=== PATIENT | female | born 1935 | race Caucasian/White ===

== ENCOUNTER 2022-09-17 08:37 | Observation (INO) | payer MEDICARE, SELFPAY ==
[2022-09-17] VITALS (15 sets, daily range): BP systolic 143–170; BP diastolic 54–93; PULSE 59–78; RESP 14–26; TEMP 36.5–36.8; O2SAT 88–98; BMI 32.7; BMI 21.7
--- NOTE | ~2022-09-17 | XR_ITS ---
Clinical Indication: Dyspnea, chest pain AP and lateral views of the chest: Comparison: None Findings: There is possible minimal central congestive change. Lungs are otherwise clear. No pleural effusion or pneumothorax. Cardiomediastinal silhouette is prominent, with pacemaker device, status p ost probable CABG. There is extensive atherosclerotic calcification of the thoracic aorta. Bones and soft tissues are unremarkable. Impression: Possible minimal central pulmonary venous congestive change. Status post CABG with pacemaker device. Reviewed, dictated and finalized at location M. Impression: Possible minimal central pulmonary venous congestive change. Status post CABG with pacemaker device.
--- NOTE | ~2022-09-17 | US_ITS ---
Duplex Sonography of the bilateral lower extremities: Indication: Positive d-dimer Sagittal and transverse B-mode images as well as color-flow imaging were performed on the right and l eft femoral and popliteal veins. B-mode examination was done without and with compression in the tra nsverse plane. There is good visualization of the bilateral common femoral, proximal profunda femora l, superficial femoral, greater saphenous, and popliteal veins. Normal flow was seen on color-flow im aging. Normal compressibility was demonstrated. Visualized calf veins are patent. Impression: No evidence of deep vein thrombosis involving either lower extremity. Reviewed, dictated and finalized at location . Impression: No evidence of deep vein thrombosis involving either lower extremit y.
--- NOTE | 2022-09-17 08:41 | ECG_ITS ---
Measurements Intervals [place] Rate: 63 P: 177 GA: 174 QRS: -47 QRSD: 138 T: 108 QT: 412 QTc: 422 Interpretive Statements ELECTRONIC ATRIAL PACEMAKER INCOMPLETE LEFT BUNDLE BRANCH BLOCK ABNORMAL ECG NO PREVIOUS ECG AVAILABLE FOR COMPARISON Electronically Signed On 09-17-2022 16:10:26 CDT by Shakeel Keita M.D.
[2022-09-17 09:12] LABS: Basophils Absolute Auto 0.1 K/mm3 (0.0-0.1); Basophils Percent Auto 0.8 % (0.2-1.2); Eosinophils Absolute Auto 0.1 K/mm3 (0-0.3); Eosinophils Percent Auto 0.8 % (0-4.4); Hematocrit 36.2 % (37.0-47.0); Hemoglobin 11.1 g/dL (12.0-15.0); Immature Granulocyte Absolute 0.02 K/mm3 (0.00-0.031); Immature Granulocyte Percent A 0.2 % (0-0.5); Lymphocytes Absolute Auto 1.89 K/mm3 (0.9-3.2); Lymphocytes Percent Auto 21.8 % (18.3-44.2); Mean Corpuscular HGB Conc 30.7 g/dl (32-36); Mean Corpuscular Hemoglobin 29.8 pg (26-34); Mean Corpuscular Volume 97.3 fl (80-100); Mean Platelet Volume 11.9 fl (7.4-10.4); Monocytes Absolute Auto 0.8 K/mm3 (0.1-0.6); Monocytes Percent Auto 8.7 % (2.6-8.5); Neutrophils Absolute Auto 5.9 K/mm3 (1.3-6.7); Neutrophils Percent Auto 67.7 % (45.5-73.1); Platelet Count Result 245 k/mm3 (150-375); Red Blood Count 3.72 M/mm3 (4.2-5.4); Red Cell Distribution Width 13.4 % (11.5-14.5); White Blood Count 8.7 K/mm3 (4.5-10.0)
--- NOTE | 2022-09-17 09:13 | ED.SOB ---
HPI - SOB/Dyspnea General Chief Complaint: Shortness of Breath/Dyspnea Stated Complaint: dyspnea Time Seen by Provider: 09/17/22 08:37 History of Present Illness HPI Narrative: Patient is an 86-year-old female who presents ER with reports of shortness of breath. Patient has history of dementia presents from her care facility. She is unable to tell me Causes of her shortness of breath. It is unknown whether she has been having fevers or chills. It is unknown whether she has had any new productive cough. Additionally when asked if patient had chest pain it was reported as she's and all night long but she cannot describe any quality of the pain or whether she has any at this time. Review of Systems Review of Systems: ROS unobtainable: Yes unobtainable due to mental status PMFSH Past Medical History Medical History (Updated 09/17/22 @ 13:18 by Craig Denney MD) Dementia Depression GERD (gastroesophageal reflux disease) Hyperlipidemia Hypertension Hypothyroidism Macular degeneration Surgical History Surgical History (Updated 09/17/22 @ 09:32 by Craig Denney MD) History of permanent cardiac pacemaker placement Exam Narrative: GENERAL: Chronically ill-appearing, well-nourished, and in no acute distress. HEAD: Normocephalic, atraumatic. ENT: Mucous membranes moist. NECK: Supple. CHEST: Clear to auscultation. No respiratory distress. HEART: Regular rate and rhythm. Normal peripheral pulses. ABDOMEN: Soft, nontender, nondistended. EXTREMITIES: Normal range of motion. No edema. SKIN: Warm, dry, no rash. NEURO: Alert and oriented x1. PSYCH: Normal mood and affect. Course Course Emergency Course: Spoke with patient's primary is project manager Dr. Palacios. Troponin negative x2 but BNP elevated, patient is not on diuretics. Recommends admission to the hospital for diuresis and echocardiogram as this is atypical for patient. He will cancel the patient's appointment for today. Patient and son educated on treatment plan and verbalized understanding. Vital Signs Vital signs: Vital Signs Temperature 98.3 F 09/17/22 08:50 Pulse Rate 78 09/17/22 08:50 Respiratory Rate 16 09/17/22 08:50 Blood Pressure 145/72 H 09/17/22 08:50 Pulse Oximetry 98 09/17/22 08:50 Oxygen Delivery Room Air 09/17/22 08:50 Temperature 98.2 F 09/17/22 10:25 Pulse Rate 65 09/17/22 10:25 Respiratory Rate 18 09/17/22 10:25 Blood Pressure 152/65 H 09/17/22 10:25 Pulse Oximetry 95 09/17/22 10:25 Oxygen Delivery Room Air 09/17/22 08:50 MDM - SOB/Dyspnea Lab Data 09/17/22 09:06 09/17/22 09:06 Labs: Lab Results 09/17/22 09/17/22 Range/Units 09:06 11:43 WBC 8.7 (4.5-10.0) K/mm3 RBC 3.72 L (4.2-5.4) M/mm3 Hgb 11.1 L (12.0-15.0) g/dL Hct 36.2 L (37.0-47.0) % MCV 97.3 (80-100) fl MCH 29.8 (26-34) pg MCHC 30.7 L (32-36) g/dl RDW 13.4 (11.5-14.5) % Plt Count 245 (150-375) k/mm3 MPV 11.9 H (7.4-10.4) fl Immature Gran % (Auto) 0.2 (0-0.5) % Neut % (Auto) 67.7 (45.5-73.1) % Lymph % (Auto) 21.8 (18.3-44.2) % Jackson % (Auto) 8.7 H (2.6-8.5) % Eos % (Auto) 0.8 (0-4.4) % Baso % (Auto) 0.8 (0.2-1.2) % Lymph # (Auto) 1.89 (0.9-3.2) K/mm3 Jackson # (Auto) 0.8 H (0.1-0.6) K/mm3 Eos # (Auto) 0.1 (0-0.3) K/mm3 Baso # (Auto) 0.1 (0.0-0.1) K/mm3 Abs Immat Gran (auto) 0.02 (0.00-0.031) K/mm3 Absolute Neuts (auto) 5.9 (1.3-6.7) K/mm3 Absolute Nucleated RBC 0.0 (0.0-0.012) K/mm3 Nucleated RBC % 0.0 (0.0-0.2) % PT 13.2 (11.1-14.7) Seconds INR 1.0 APTT 32.0 (22.3-36.8) SECONDS Sodium 143 (137-145) mmol/L Potassium 3.5 (3.4-5.0) mmol/L Chloride 108 H (98-107) mmol/L Carbon Dioxide 31 H (22-30) mmol/L Anion Gap 4 L (8-16) mmol/L BUN 16 (7-17) mg/dL Creatinine 0.70 (0.7-1.0) mg/dL Estim Creat Clear Calc 50 ml/min Estimated GFR > 60 (59 - ) G
[2022-09-17 09:22] LABS: Prothrombin Time 13.2 Seconds (11.1-14.7)
[2022-09-17 09:23] LABS: Alanine Aminotransferase 19 U/L (6-35); Alkaline Phosphatase 57 U/L (38-126); Anion Gap 4 mmol/L (8-16); Aspartate Amino Transferase 25 U/L (14-36); Bilirubin,Total 0.5 mg/dL (0.2-1.3); Blood Urea Nitrogen 16 mg/dL (7-17); Calcium 8.8 mg/dL (8.4-10.2); Carbon Dioxide 31 mmol/L (22-30); Chloride 108 mmol/L (98-107); Estimated CRCL calculation 50 ml/min; Estimated Glomerular Filt Rate > 60; Glucose 98 mg/dL (65-110); Lipase 149 U/L (23-300); Potassium 3.5 mmol/L (3.4-5.0); Sodium 143 mmol/L (137-145)
[2022-09-17 09:35] LABS: Troponin I 0.026 ng/mL (0.000-0.034)
[2022-09-17] MEDS: IPRATROPIUM BR 0.02% INH SOLN 0.5 MG/2.5 ML VIAL INHALATION (09:49)
[2022-09-17] MEDS: ALBUTEROL SULFATE NEB 2.5 MG/3 ML INH INHALATION (09:52)
[2022-09-17 10:03] LABS: NT Pro B Type Natriuretic Pept 10400 pg/mL (19.9-100)
[2022-09-17] MEDS: Please add drug allergy info to patient profile. 1 EACH XX (10:34)
[2022-09-17 12:11] LABS: Troponin I 0.025 ng/mL (0.000-0.034)
[2022-09-17] MEDS: FUROSEMIDE INJ 40 MG/4 ML VIAL IV PUSH (14:12)
--- NOTE | 2022-09-17 14:53 | ADMGEN ---
This patient, Noni Hyde, was admitted to [facility] Surg Room 324-02 @ 1440. Patient/family oriented to hospital policies and general routines including ID bracelet, bed and alarms, visiting hours, pain management, procedures, bathroom and other care routines, personal items, smoking policy, room service/diet, and visiting hours. Information on how to activate the Rapid Response Team has been discussed. Patient/Family are encouraged to report perceived risks to care and to ask questions if they do not understand what they are told or what they should do.
--- NOTE | 2022-09-17 15:41 | PM.IMHP ---
H&P: HPI History of Present Illness Date/Time: 09/17/22 15:30 Chief Complaint: Shortness of breath. Narrative: This is a pleasant 86-year-old female with history of dementia, coronary artery disease, pacemaker, hypertension, hyperlipidemia, hypothyroidism, and depression who presented to the emergency department via EMS from [facility] for evaluation of shortness of breath. She is not a great historian due to underlying dementia and some of the following history is obtained from ED and EMS documentation. She reportedly started having difficulties breathing overnight and was more short of breath this morning. It is my understanding that she mentioned chest pain to staff members at her living facility though she had no complaints of chest pain in the ER. At the time my evaluation she is supine in bed and seems quite comfortable. She just finished chatting on the phone with 1 of her 7 children and she is in good spirits. She has no current complaints and specifically denies fever, chills, sweats, chest pain, pleuritic pain, nausea, vomiting, diarrhea, orthopnea, lower extremity edema, and calf pain. In the ED: She was afebrile on arrival with stable blood pressures and an SpO2 as low as 88% on room air. Labs were significant for a WBC count of 8.7, hemoglobin 11.1, proBNP 35263, and troponin 0.026. Chest x-ray showed possible minimal central pulmonary venous congestive changes. ED physician spoke with her dried fruit washer, Dr. Horacio Palacios, who recommends that the patient be admitted for diuresis and he also recommends getting an echocardiogram as this is presumably new finding for her. She received a dose of furosemide 40 mg IV x1 and she has been admitted to the telemetry floor for close monitoring. Review of Systems Review of Systems: Reviewed and are negative except for as per HPI. [facility] Past Medical History Medical History (Updated 09/17/22 @ 15:57 by Sara Toussaint PA-C) Coronary artery disease Dementia Depression Gastroesophageal reflux disease Hyperlipidemia Hypertension Hypothyroidism Macular degeneration Surgical History Surgical History (Updated 09/17/22 @ 15:48 by Sara Toussaint PA-C) History of coronary artery bypass graft History of permanent cardiac pacemaker placement Family History Family History (Updated 09/17/22 @ 22:20 by Sara Toussaint PA-C) Other Family history unknown Social History Social History (Updated 09/17/22 @ 22:21 by Sara Toussaint PA-C) Social History: Surrogate medical decision maker: Shakeel or Agustin Hyde. Code status: Full code. Smoking status: Never smoker Alcohol intake: never Substance use: never Lack of Transportation: No Lack of Food: Never True Current Housing: I Have Housing Concerned About Future Housing: No Difficulty Paying Gas/Electric Bills: No Difficulty Paying for Meds: No Currently Unemployed: No Education: Don't Know Difficulty w/ Childcare or Family Care: No Additional living arrangements comments: [facility]. Spiritual care concerns: No Meds Home Medications and Allergies Home Medications Medication Instructions Recorded Confirmed Type acetaminophen 325 mg tablet 325 mg PO BID 09/17/22 09/17/22 History atorvastatin 40 mg tablet 40 mg PO HS 09/17/22 09/17/22 History benazepril 20 mg tablet 20 mg PO DAILY 09/17/22 09/17/22 History calcium polycarbophil 625 mg 625 mg PO DAILY 09/17/22 09/17/22 History tablet (Fiber-Lax) carvedilol 3.125 mg tablet 3.125 mg PO BID 09/17/22 09/17/22 History cholecalciferol (vitamin D3) 50 2,000 unit PO DAILY 09/17/22 09/17/22 History mcg (2,000 unit) tablet donepezil 10 mg tablet 10 mg PO HS 09/17/22 09/17/22 History duloxetine 30 mg capsule,delayed 30 mg PO DAILY 09/17/22 09/17/22 History release famotidine 20 mg tablet 20 mg PO BID 09/17/22 09/17/22 History levothyroxine 75 mcg tablet 75 mcg PO DAILY 09/17/22 09/17/22 His
[2022-09-17] MEDS: POTASSIUM CHLORIDE 20 MEQ ER TABLET PO (17:34)
[2022-09-17] MEDS: FUROSEMIDE INJ 40 MG/4 ML VIAL 20 MG IV PUSH (20:25)
[2022-09-18] VITALS (12 sets, daily range): BP systolic 152–169; BP diastolic 48–82; PULSE 60–76; RESP 20–22; TEMP 35.9–36.8; O2SAT 94–98
[2022-09-18 00:28] LABS: D Dimer 0.77 ug/mL (<0.48)
--- NOTE | 2022-09-18 06:00 | ECHO_ITS ---
Patient Info Name: Noni Hyde Age: 86 years : 1935 Gender: Female Ht: 60 in Wt: 112 lbs BSA: 1.47 m2 HR: 61 bpm Heart Rhythm: Sinus Rhythm Technical Quality: Good Exam Date: 09/18/2022 10:10 AM Exam Location: [facility] Patient Status: Outpatient Admit Date: 09/17/2022 Staff Ordering Physician: Craig Denney MD Furnace Builder: Fernanda Boyer RDCS Attending Provider: Rj Winslow MD Referring Physician: Олег LUBIN; Exam Type: CA echo doppler color flow Study Info Indications - heart failure Complete two-dimensional, color flow and Doppler transthoracic echocardiogram is performed. Summary 1. Complete two-dimensional, color flow and Doppler transthoracic echocardiogram is performed. 2. Left ventricular dilation with global systolic dysfunction and reduced ejection fraction. 3. Dilated left atrium. 4. Very small amounts of aortic and mitral valve regurgitation. Left Ventricle Left ventricular chamber dimension is moderately enlarged. Left ventricular systolic function is severely reduced, estimated at 25-30%. The left ventricular diastolic function is grade I diastolic dysfunction. Right Ventricle Right ventricular chamber dimension is normal. Right ventricular systolic function is normal. Left Atria Left atrial chamber dimension is moderately enlarged. Right Atria Right atrial chamber dimension is normal. Aortic Valve The aortic valve is trileaflet. There is mild aortic valve sclerosis. There is trace aortic valve regurgitation. Pulmonic Valve The pulmonic valve is normal. Mitral Valve The mitral valve has normal leaflets. There is mild mitral valve regurgitation. Tricuspid Valve The tricuspid valve leaflets are normal. Pericardium/Pleural The pericardium appears normal. Aorta The aortic root size at the sinus of Valsalva is normal. Report Signatures
[2022-09-18 07:06] LABS: Hematocrit 39.9 % (37.0-47.0); Hemoglobin 12.5 g/dL (12.0-15.0); Mean Corpuscular HGB Conc 31.3 g/dl (32-36); Mean Corpuscular Hemoglobin 29.6 pg (26-34); Mean Corpuscular Volume 94.3 fl (80-100); Mean Platelet Volume 12.2 fl (7.4-10.4); Platelet Count Result 256 k/mm3 (150-375); Red Blood Count 4.23 M/mm3 (4.2-5.4); Red Cell Distribution Width 13.2 % (11.5-14.5); White Blood Count 9.1 K/mm3 (4.5-10.0)
[2022-09-18 07:23] LABS: Anion Gap 4 mmol/L (8-16); Blood Urea Nitrogen 13 mg/dL (7-17); Calcium 8.9 mg/dL (8.4-10.2); Carbon Dioxide 34 mmol/L (22-30); Chloride 103 mmol/L (98-107); Estimated CRCL calculation 31 ml/min; Estimated Glomerular Filt Rate > 60; Glucose 85 mg/dL (65-110); Magnesium 2.3 mg/dL (1.6-2.3); Potassium 3.5 mmol/L (3.4-5.0); Sodium 141 mmol/L (137-145)
[2022-09-18 08:10] LABS: Troponin I 0.077 ng/mL (0.000-0.034)
[2022-09-18] MEDS: FUROSEMIDE INJ 40 MG/4 ML VIAL 20 MG IV PUSH (09:18)
[2022-09-18] MEDS: CHOLECALCIFEROL 1,000 UNITS TABLET 2000 UNITS PO (09:19)
[2022-09-18] MEDS: carvediloL 3.125 MG TABLET PO ×2 (09:19→21:13)
[2022-09-18] MEDS: ACETAMINOPHEN 325 MG TABLET PO ×2 (09:21→17:37)
[2022-09-18] MEDS: POTASSIUM CHLORIDE 20 MEQ ER TABLET PO (09:21)
[2022-09-18] MEDS: DULoxetine HCL 30 MG CAPSULE.DR PO (09:21)
[2022-09-18] MEDS: EMPAGLIFLOZIN 10 MG TABLET PO (09:21)
[2022-09-18] MEDS: calcium polycarbophiL 625 MG TABLET PO (09:21)
[2022-09-18] MEDS: LEVOTHYROXINE SODIUM 75 MCG TABLET PO (09:21)
[2022-09-18] MEDS: lisinopriL 20 MG TABLET PO (09:21)
[2022-09-18] MEDS: FAMOTIDINE 20 MG TABLET PO ×2 (09:21→21:12)
[2022-09-18 13:42] LABS: Free T4 Free Thyroxine Reflex 1.86 ng/dL (0.78-2.19)
[2022-09-18 14:55] LABS: Total Triiodothyronine (T3) 1.01 NG/ML (0.97-1.69)
--- NOTE | 2022-09-18 15:04 | PM.IMPN ---
Progress Note: A&P Assessment and Plan (1) CHF exacerbation: Code(s): I50.9 - Heart failure, unspecified Status: Acute Assessment and Plan: Patient is brought to the emergency room with complaints of shortness of breath. Chest x-ray shows possible minimal [place] [address]. Troponin mildly elevated to 0.077. EKG shows incomplete left bundle branch block and paced rhythm. No old EKGs to compare. Echocardiogram shows EF is 25-30% with grade 1 diastolic dysfunction. Patient is followed by Cardiology in the son does believe that the patient has a low EF chronically. Patient with acute on chronic systolic and diastolic CHF. D-dimer is mildly elevated at 0.77 but PE seems less likely given these findings. We will check lower extremity venous Dopplers. Will hold on CTA of the chest at this time. She remains on room air. Will change Lasix to oral. Add empagliflozin (2) Elevated troponin: Code(s): R77.8 - Other specified abnormalities of plasma proteins Status: Acute Assessment and Plan: As above. Most likely related to the CHF exacerbation. (3) Coronary artery disease: Code(s): I25.10 - Atherosclerotic heart disease of [place] coronary artery without angina pectoris Status: Acute Assessment and Plan: Patient has history of coronary disease. She is on Lipitor and Coreg. Will add baby aspirin. (4) Hypertension: Code(s): I10 - Essential (primary) hypertension Status: Acute Assessment and Plan: Patient's blood pressure was reviewed on 09/18 Blood pressure remains elevated above goal. Will continue current medications. Continue to monitor (5) Hypothyroidism: Code(s): E03.9 - Hypothyroidism, unspecified Status: Acute Assessment and Plan: TSH 5.5. Continue levothyroxine. (6) Dementia: Code(s): F03.90 - Unspecified dementia, unspecified severity, without behavioral disturbance, psychotic disturbance, mood disturbance, and anxiety Status: Acute Assessment and Plan: Stable. In good spirits. Continue Aricept. (7) Hyperlipidemia: Code(s): E78.5 - Hyperlipidemia, unspecified Status: Acute Assessment and Plan: LFTs within normal limits. Continue Lipitor. Plan Code status -full code DVT prophylaxis -SCDs Subjective Date/time seen: 09/18/22 15:04 Interval history: 86yo female with CAD, dementia and HTN here for shortness of breath. She is alert but confused. She complains of leg pain bilaterally when she walks. She denies SOB of CP. No n/v. Son in the room who helps with history. Exam Narrative: AF 98.3 152/48 61 20 96% ra Gen - NARD Chest - CTA bilaterally, nml RR CV - RRR S1/S2 Abd - Soft, NT/ND, Positive BS Ext - No pedal edema. Negative Petey sign. Neuro - Alert and oriented x2 (name, Jimmy name and that she is at the hosp but not name of hosp). Psych - Nml mood and affect Skin - Warm and dry Objective Data Vital Signs Vital Signs: Vital Signs - 24 hr 09/17/22 16:00 09/17/22 21:04 09/17/22 20:00 Temperature 98 F Pulse Rate 60 59 L Respiratory Rate 20 Blood Pressure 159/55 H Pulse Oximetry 97 Oxygen Delivery Room Air 09/17/22 20:00 09/18/22 00:00 09/18/22 01:14 Temperature Pulse Rate 60 62 Respiratory Rate Blood Pressure Pulse Oximetry 94 Oxygen Delivery Room Air 09/18/22 04:00 09/18/22 05:36 09/18/22 09:19 Temperature 96.8 F L Pulse Rate 60 69 65 Respiratory Rate 20 Blood Pressure 169/82 H Pulse Oximetry 98 Oxygen Delivery 09/18/22 09:15 09/18/22 14:00 Temperature 98.3 F Pulse Rate 61 Respiratory Rate 20 Blood Pressure 152/48 H Pulse Oximetry 96 Oxygen Delivery Room Air Intake/Output Intake/Output: Intake & Output 09/15/22 09/16/22 09/17/22 09/18/22 23:59 23:59 23:59 23:59 Intake Total 290 130 Output Total 150
[2022-09-18] MEDS: DONEPEZIL HCL 10 MG TABLET PO (21:13)
[2022-09-18] MEDS: ATORVASTATIN 40 MG TABLET PO (21:13)
[2022-09-19] VITALS (7 sets, daily range): BP systolic 141–154; BP diastolic 48–60; PULSE 59–65; RESP 18–22; TEMP 35.9–36.7; O2SAT 94–97
[2022-09-19 07:41] LABS: Anion Gap 7 mmol/L (8-16); Blood Urea Nitrogen 16 mg/dL (7-17); Calcium 8.9 mg/dL (8.4-10.2); Carbon Dioxide 26 mmol/L (22-30); Chloride 106 mmol/L (98-107); Estimated CRCL calculation 28 ml/min; Estimated Glomerular Filt Rate 59; Glucose 93 mg/dL (65-110); Potassium 3.9 mmol/L (3.4-5.0); Sodium 139 mmol/L (137-145)
[2022-09-19] MEDS: FUROSEMIDE 20 MG TABLET PO (08:57)
[2022-09-19] MEDS: lisinopriL 20 MG TABLET PO (08:57)
[2022-09-19] MEDS: POTASSIUM CHLORIDE 20 MEQ ER TABLET PO (08:57)
[2022-09-19] MEDS: EMPAGLIFLOZIN 10 MG TABLET PO (08:57)
[2022-09-19] MEDS: LEVOTHYROXINE SODIUM 75 MCG TABLET PO (08:58)
[2022-09-19] MEDS: DULoxetine HCL 30 MG CAPSULE.DR PO (08:58)
[2022-09-19] MEDS: ASPIRIN 81 MG CHEWABLE TABLET PO (08:58)
[2022-09-19] MEDS: ACETAMINOPHEN 325 MG TABLET PO (08:59)
[2022-09-19] MEDS: carvediloL 3.125 MG TABLET PO (08:59)
[2022-09-19] MEDS: CHOLECALCIFEROL 1,000 UNITS TABLET 2000 UNITS PO (08:59)
[2022-09-19] MEDS: FAMOTIDINE 20 MG TABLET PO (09:33)
[2022-09-19] MEDS: calcium polycarbophiL 625 MG TABLET PO (09:33)
--- NOTE | 2022-09-19 14:28 | PM.DS ---
DS: Admitting Diagnosis Discharge Date 09/19/22 Admitting Diagnosis Shortness of breath DS: Discharge Diagnosis Discharge Diagnosis (1) CHF exacerbation: Code(s): I50.9 - Heart failure, unspecified Status: Acute (2) Elevated troponin: Code(s): R77.8 - Other specified abnormalities of plasma proteins Status: Acute (3) Coronary artery disease: Code(s): I25.10 - Atherosclerotic heart disease of [place] coronary artery without angina pectoris Status: Acute (4) Hypertension: Code(s): I10 - Essential (primary) hypertension Status: Acute (5) Hypothyroidism: Code(s): E03.9 - Hypothyroidism, unspecified Status: Acute (6) Dementia: Code(s): F03.90 - Unspecified dementia, unspecified severity, without behavioral disturbance, psychotic disturbance, mood disturbance, and anxiety Status: Acute (7) Hyperlipidemia: Code(s): E78.5 - Hyperlipidemia, unspecified Status: Acute DS: Summary Hospital Course Reason for hospitalization: 86yo female with CAD, dementia and HTN here for shortness of breath. Please see H&P for details. Hospital Course: Patient is brought to the emergency room with complaints of shortness of breath.? Chest x-ray shows possible minimal central [place] [address].? Troponin mildly elevated to 0.077.? EKG shows incomplete left bundle branch block and paced rhythm.? No old EKGs to compare.? Echocardiogram shows EF is 25-30% with grade 1 diastolic dysfunction.? Patient is followed by Cardiology and the son does believe that the patient has a low EF chronically.? Patient with acute on chronic systolic and diastolic CHF.? D-dimer is mildly elevated at 0.77 but PE seems less likely given these findings since CHF more likely.? Lower extremity venous Dopplers were negative for DVT.?She remained on room air throughout her hospital course. No tachycardia.? She was treated with IV Lasix then changed to oral.? We added empagliflozin. Elevated troponin noted and most likely related to the CHF exacerbation. Patient has history of coronary disease.? She is on Lipitor and Coreg which was continued.? We added baby aspirin. TSH 5.5.?We continued levothyroxine. She had clinical improvement. SHe was discharged on 09/19/22. Status at Discharge Cognitive/behavioral status at discharge: stable Time Spent with Patient Time attestation: Total time spent providing and/or coordinating discharge services: 35 minutes Time spent: Greater than 30 minutes Exam Narrative: AF 96.7 154/48 60 22 97% ra Gen - NARD Chest - CTA bilaterally, nml RR CV - RRR S1/S2 Abd - Soft, NT/ND, Positive BS Ext - No pedal edema. Psych - Nml mood and affect Skin - Warm and dry DS: Data Data Completed and Pending Labs on day of discharge: Labs from last 24 hours 09/19/22 09/18/22 07:10 06:42 Sodium 139 Potassium 3.9 Chloride 106 Carbon Dioxide 26 Anion Gap 7 L BUN 16 Creatinine 0.90 Estim Creat Clear Calc 28 Estimated GFR 59 Glucose 93 Calcium 8.9 Total T3 1.01 Discharge Plan Discharge Attending physician on discharge: Rj Winslow Consulting providers: Joanne Starr Discharging Clinician: Rj Winslow Anticipated Discharge Date/Time: 09/19/22 14:37 Patient Disposition: NH Fdc/Asst Living Activity: as tolerated Diet: heart healthy Discharge Instructions: Check blood pressure 1 to 2 times a day. Record for the doctor's review. Take precautions to avoid falls. Rise slowly from a lying or sitting position. Pause before standing or walking. Check daily morning weights after voiding. Call the doctor if the patient gains more than 3 lb in 2 days or 5 lb in 1 week. Contact the doctor if the patient has any type of trauma, lightheadedness with standing or other worrisome symptoms. Avoid NSAIDs (ibuprofen, naproxen, Aleve). Tylenol is safe
== END 2022-09-19 16:00 ==
LOC: ANHED 13:18 → ANH3MEDSUR 14:06
PROVIDERS: Physician Assistant; Admitting Provider Internal Medicine; Emergency Provider Emergency Medicine; Visit Provider Internal Medicine
DX: I50.9 Heart failure, unspecified (principal); R77.8 Other specified abnormalities of plasma proteins; I25.10 Atherosclerotic heart disease of native coronary artery without angina pectoris; Z95.1 Presence of aortocoronary bypass graft; I10 Essential (primary) hypertension; E03.9 Hypothyroidism, unspecified; F03.90 Unspecified dementia, unspecified severity, without behavioral disturbance, psychotic disturbance, mood disturbance, and anxiety; E78.5 Hyperlipidemia, unspecified; F32.A Depression, unspecified; K21.9 Gastro-esophageal reflux disease without esophagitis; I44.7 Left bundle-branch block, unspecified; R79.1 Abnormal coagulation profile; R94.31 Abnormal electrocardiogram [ECG] [EKG]; H35.30 Unspecified macular degeneration; Z95.0 Presence of cardiac pacemaker; R79.89 Other specified abnormal findings of blood chemistry; Z79.1 Long term (current) use of non-steroidal anti-inflammatories (NSAID); Z79.899 Other long term (current) drug therapy
CPT/HCPCS: 36415; 71046; 80048; 80053; 83690; 83735; 83880; 84439; 84443; 84480; 84484; 85025; 85027; 85380; 85610; 85730; 93005; 93306; 93970; 94640; 96374; 96376; 99285; A9270; G0378; J1940

== ENCOUNTER 2022-12-20 21:35 | Inpatient (IN) | payer MEDICARE, SELFPAY ==
--- NOTE | ~2022-12-20 | XR_ITS ---
EXAMINATION: XR surgery orthopedic DATE: 12/22/2022 15:52 INDICATION: Right hip pinning TECHNIQUE: 2 fluoroscopic images of the right hip were obtained during procedure performed by Dr. Carroll davis. Radiologist was not present for the imaging or procedure. The amount of fluoroscopy time used d uring this procedure was 6.5 minutes. COMPARISON: 01/19/2023 FINDINGS: Interval reduction to near anatomic alignment of a subcapital fracture of the right femur a nd fixation with 3 cannulated leg screws. No new fractures identified. Mild osteoarthritis at the rig ht hip. IMPRESSION: 1. Near-anatomic alignment post reduction and leg screw fixation of a right femoral subcapital fractu re. Reviewed, dictated and finalized at location A. IMPRESSION: 1. Near-anatomic alignment post reduction and leg screw fixation of a right fem oral subcapital fracture.
--- NOTE | ~2022-12-20 | XR_ITS ---
EXAM: XR hip RT 2V w AP pelvis DATE: 12/20/2022 22:23 HISTORY: glf, R hip pain . COMPARISON: None available. FINDINGS: Decreased mineralization. Transverse fracture of the right femoral neck, with minimal over lap, and mild lateral angulation. No lytic or blastic lesion. Joint spaces are severe lower lumbar de generative disc disease. Severe osteitis pubis. Mild bilateral hip osteoarthritis. No erosion or emily osteal change. Diffuse vascular calcifications. IMPRESSION: Mildly displaced right femoral neck fracture. Reviewed, dictated and finalized at location K.
--- NOTE | ~2022-12-20 | XR_ITS ---
EXAMINATION: XR chest 1V Exam Date/Time: 12/20/2022 22:18 CDT HISTORY: POSSIBLE HIP FX Comparison: 09/17/2022. RESULT: Lines, tubes, and devices: Intact sternotomy wires. Surgical clips over the mediastinum and GE junct ion. Left chest pacer with intact leads Lungs and pleura: Senescent change. Streaky and subsegmental left basilar opacities. Cardiomediastinal silhouette: Stable. Other: No acute osseous or upper abdominal finding. IMPRESSION: Left basilar scar and atelectasis/consolidation. Reviewed, dictated and finalized at location K.
[2022-12-20 21:38] VITALS: BP 157/56; PULSE 60; RESP 17; TEMP 36.4; O2SAT 100
--- NOTE | 2022-12-20 22:41 | ECG_ITS ---
Measurements Intervals [place] Rate: 60 P: 183 IA: 181 QRS: -42 QRSD: 159 T: 93 QT: 459 QTc: 459 Interpretive Statements ELECTRONIC ATRIAL PACEMAKER LEFT AXIS DEVIATION IVCD, ATYPICAL LEFT BUNDLE BRANCH BLOCK BASELINE WANDER- V3 ABNORMAL ECG COMPARED TO ECG 09/17/2022 08:43:50 NO SIGNIFICANT CHANGES Electronically Signed On 12-21-2022 6:31:13 CDT by Luis Elias D.O.
--- NOTE | 2022-12-20 23:03 | ED.FALL ---
HPI - Fall General Chief Complaint: Fall Stated Complaint: FALL W/ RIGHT HIP PAIN Time Seen by Provider: 12/20/22 22:05 Source: patient, family and old records reviewed Mode of arrival: EMS Limitations: no limitations History of Present Illness HPI Narrative: Patient is an 87-year-old female who presents ED via EMS with report of right hip pain. Patient is a resident of [facility]. She states she was standing up to fix a piece of clothing when she turned around and fell. She states she thought her walker was right behind her but it had rolled away. She fell onto her right side and was unable to get up off the ground. She complains of pain to her right hip. Denies any other pain. She did not hit her head or lose consciousness. Denies any numbness or tingling. Denies right knee pain. Related Data Home Medications Medication Instructions Recorded Confirmed acetaminophen 325 mg tablet 325 mg PO BID 09/17/22 12/21/22 atorvastatin 40 mg tablet 40 mg PO HS 09/17/22 12/21/22 benazepril 20 mg tablet 20 mg PO DAILY 09/17/22 12/21/22 calcium polycarbophil 625 mg 625 mg PO DAILY 09/17/22 12/21/22 tablet (Fiber-Lax) carvedilol 3.125 mg tablet 3.125 mg PO BID 09/17/22 12/21/22 cholecalciferol (vitamin D3) 50 2,000 unit PO DAILY 09/17/22 12/21/22 mcg (2,000 unit) tablet donepezil 10 mg tablet 10 mg PO HS 09/17/22 12/21/22 duloxetine 30 mg capsule,delayed 30 mg PO DAILY 09/17/22 12/21/22 release famotidine 20 mg tablet 20 mg PO BID 09/17/22 12/21/22 levothyroxine 75 mcg tablet 75 mcg PO DAILY 09/17/22 12/21/22 furosemide 20 mg tablet 20 mg PO DAILY 12/21/22 12/21/22 Allergies Allergy/AdvReac Type Severity Reaction Status Date / Time codeine Allergy Unknown Unknown Verified 09/17/22 16:18 hydrocodone Allergy Unknown Unknown Verified 09/17/22 16:18 Review of Systems Review of Systems: CONSTITUTIONAL: Denies fever, chills, or sweats. MUSCULOSKELETAL: See HPI. NEUROLOGIC: See HPI. All systems reviewed & are unremarkable except as noted in HPI and below [facility] Past Medical History Medical History Coronary artery disease Dementia Depression Gastroesophageal reflux disease Hyperlipidemia Hypertension Hypothyroidism Macular degeneration Surgical History Surgical History History of coronary artery bypass graft History of permanent cardiac pacemaker placement Family History Family History Other Family history unknown Social History Social History Social History: Surrogate medical decision maker: Shakeel or Agustin Hyde. Code status: Full code. Smoking status: Never smoker Alcohol intake: never Substance use: never Lack of Transportation: No Lack of Food: Never True Current Housing: I Have Housing Concerned About Future Housing: No Difficulty Paying Gas/Electric Bills: No Difficulty Paying for Meds: No Currently Unemployed: No Education: High School Diploma/GED Difficulty w/ Childcare or Family Care: No Additional living arrangements comments: [facility]. Spiritual care concerns: No Exam Narrative: GENERAL: Elderly, thin, non-toxic, in no acute distress. HEAD: Normocephalic, atraumatic. NECK: Supple. No adenopathy, no masses. RESPIRATORY: Airway patent, respirations nonlabored. Clear to auscultation bilaterally, no rales, rhonchi, wheezing. CARDIOVASCULAR: Regular rate and rhythm without murmurs, rubs, or gallops. Pedal pulses 2+ and equal bilaterally. ABDOMINAL: Soft, nontender, nondistended, no hepatosplenomegaly. Normoactive BS. MUSCULOSKELETAL: Limited range of motion of right lower extremity due to pain at right hip. Sensation intact throughout right lower extremity. Focal tenderness palpation over the ri
[2022-12-20 23:32] LABS: Basophils Absolute Auto 0.1 K/mm3 (0.0-0.1); Basophils Percent Auto 0.6 % (0.2-1.2); Eosinophils Absolute Auto 0.1 K/mm3 (0-0.3); Eosinophils Percent Auto 0.9 % (0-4.4); Hematocrit 38.5 % (37.0-47.0); Immature Granulocyte Absolute 0.07 K/mm3 (0.00-0.031); Immature Granulocyte Percent A 0.7 % (0-0.5); Lymphocytes Absolute Auto 1.72 K/mm3 (0.9-3.2); Lymphocytes Percent Auto 17.5 % (18.3-44.2); Mean Corpuscular HGB Conc 31.2 g/dl (32-36); Mean Corpuscular Hemoglobin 29.8 pg (26-34); Mean Corpuscular Volume 95.5 fl (80-100); Mean Platelet Volume 11.3 fl (7.4-10.4); Monocytes Absolute Auto 0.9 K/mm3 (0.1-0.6); Neutrophils Percent Auto 71.3 % (45.5-73.1); Platelet Count Result 248 k/mm3 (150-375); Red Blood Count 4.03 M/mm3 (4.2-5.4); Red Cell Distribution Width 13.5 % (11.5-14.5); White Blood Count 9.8 K/mm3 (4.5-10.0)
[2022-12-20 23:44] LABS: Alanine Aminotransferase 26 U/L (6-35); Alkaline Phosphatase 67 U/L (38-126); Anion Gap 2 mmol/L (8-16); Aspartate Amino Transferase 32 U/L (14-36); Bilirubin,Total 0.6 mg/dL (0.2-1.3); Blood Urea Nitrogen 20 mg/dL (7-17); Carbon Dioxide 33 mmol/L (22-30); Chloride 104 mmol/L (98-107); Estimated CRCL calculation 25 ml/min; Estimated Glomerular Filt Rate 52; Glucose 82 mg/dL (65-110); Potassium 3.7 mmol/L (3.4-5.0); Sodium 139 mmol/L (137-145)
[2022-12-20 23:50] LABS: INR 0.9; Prothrombin Time 12.7 Seconds (11.1-14.7)
[2022-12-20 23:52] LABS: Partial Thromboplastin Time 30.9 SECONDS (22.3-36.8)
[2022-12-21] VITALS (8 sets, daily range): BP systolic 116–180; BP diastolic 49–54; PULSE 59–68; RESP 14–18; TEMP 36.5–36.9; O2SAT 91–100; BMI 20.2
--- NOTE | 2022-12-21 01:52 | PC.NURSE ---
Called DR. Mason at [phone] he answered at [phone]
--- NOTE | 2022-12-21 02:20 | ADMGEN ---
This patient, Noni Hyde, was admitted to Medical Room 258-. Patient/family oriented to hospital policies and general routines including ID bracelet, bed and alarms, visiting hours, pain management, procedures, bathroom and other care routines, personal items, smoking policy, room service/diet, and visiting hours. Information on how to activate the Rapid Response Team has been discussed. Patient/Family are encouraged to report perceived risks to care and to ask questions if they do not understand what they are told or what they should do.
[2022-12-21] MEDS: MORPHINE SULFATE (*CRX) 4 MG/ML INJ 1 MG IV PUSH (02:47)
[2022-12-21] MEDS: carvediloL 3.125 MG TABLET PO ×2 (08:32→20:37)
[2022-12-21] MEDS: LEVOTHYROXINE SODIUM 75 MCG TABLET PO (08:32)
[2022-12-21] MEDS: FUROSEMIDE 20 MG TABLET PO (08:32)
--- NOTE | 2022-12-21 09:22 | PM.CNOR ---
Assessment and Plan Assessment and plan (1) Closed fracture of neck of right femur: Qualifiers: Encounter type: initial encounter Qualified Code(s): S72.001A - Fracture of unspecified part of neck of right femur, initial encounter for closed fracture Code(s): S72.001A - Fracture of unspecified part of neck of right femur, initial encounter for closed fracture Status: Acute Assessment and Plan: 87 year old female admitted s/p right hip fracture. History, exam and radiographs reviewed with the patient and son at bedside. Condition, nature, etiology and course of natural history discussed. Conservative and operative treatment options reviewed as well as the risks and benefits of both. The fracture type and injury discussed with the patient and family. The patients questions were answered. The patient desires operative treatment. Discussed CRPP Right Hip Risks of surgery including but not limited to neurovascular damage, wound complications, blood clot, pulmonary embolus, stroke, myocardial infarction, anesthetic risks up to and including were reviewed. Continued pain and possible dysfunction were explained. No guarantees were offered. The patient understands and wishes to proceed. Plan: CRPP Right Hip by Dr. Mason pending medical clearance. Obtain consent. NPO at midnight. Pain control. Bedrest. Incentive Spirometry. Hold Anticoagulation. Dispo: Patient will likely require discharge to Acute Rehab or SNF at discharge. Care coordination consult. (2) Ground-level fall: Code(s): W18.30XA - Fall on same level, unspecified, initial encounter Status: Acute (3) Congestive heart failure: Qualifiers: Heart failure chronicity: chronic Heart failure type: unspecified Qualified Code(s): I50.9 - Heart failure, unspecified Code(s): I50.9 - Heart failure, unspecified Status: Acute (4) Elevated troponin: Code(s): R77.8 - Other specified abnormalities of plasma proteins Status: Acute (5) Dementia: Qualifiers: Dementia behavioral or psychological symptom: unspecified whether behavioral, psychotic, or mood disturbance or anxiety Dementia severity: unspecified severity Dementia type: unspecified type Qualified Code(s): F03.90 - Unspecified dementia, unspecified severity, without behavioral disturbance, psychotic disturbance, mood disturbance, and anxiety Code(s): F03.90 - Unspecified dementia, unspecified severity, without behavioral disturbance, psychotic disturbance, mood disturbance, and anxiety Status: Acute Plan Reviewed history, exam, radiographic findings with attending physician and foreign law consultant surgeon, Dr. Mason. Agrees with current plan as indicated above. No further recommendations at this time. History of Present Illness HPI Consult date: 12/21/22 Chief complaint: R Femoral Neck FX,GLF,Dementia Narrative: 87-year-old female who lives in assisted living at [facility] was admitted via ambulance overnight due to a mechanical fall. Per the patient, she was standing up to fix his sweater in the middle of the night which point she fell to the ground and was unable to stand. Significant right lower extremity pain. She denies shortness of breath, lightheadedness or heart palpitations prior to the fall. She denies loss of consciousness or hitting her head. Radiographs of the right hip in the emergency room reveal mildly displaced right femoral neck fracture. Orthopedic consult requested and patient admitted for further evaluation and surgical treatment. Review of Systems Constitutional: Constitutional: Reports no additional constitutional complaints, Denies chills, Denies fatigue, Denies fever(s), Denies headache(s) and Denies weakness Eyes: Eyes: Denies change in vision ENT: Reports Normal hearing present and Denies headache(s) Cardiovascular: Cardiovascular: Denies chest pain and Denies dyspnea Respiratory:
--- NOTE | 2022-12-21 10:39 | PM.IMHP ---
H&P: HPI History of Present Illness Date/Time: 12/21/22 10:39 Chief Complaint: Patient is an 87-year-old female who presents ED via EMS with report of right hip pain.? Patient is a resident of [facility].? She states she was standing up to fix a piece of clothing when she turned around and fell.? She states she thought her walker was right behind her but it had rolled away.? She fell onto her right side and was unable to get up off the ground.? She complains of pain to her right hip.? Denies any other pain.? She did not hit her head or lose consciousness.? Denies any numbness or tingling.? Denies right knee pain. Review of Systems Review of Systems: 10 point ROS negative except as stated in HPI / Subjective PMFSH Past Medical History Medical History Coronary artery disease Dementia Depression Gastroesophageal reflux disease Hyperlipidemia Hypertension Hypothyroidism Macular degeneration Surgical History Surgical History History of coronary artery bypass graft History of knee replacement Bilateral Knees History of permanent cardiac pacemaker placement Family History Family History Other Family history unknown Social History Social History Social History: Surrogate medical decision maker: Shakeel or Agustin Hyde. Code status: Full code. Smoking status: Never smoker Alcohol intake: never Substance use: never Lack of Transportation: No Lack of Food: Never True Current Housing: I Have Housing Concerned About Future Housing: No Difficulty Paying Gas/Electric Bills: No Difficulty Paying for Meds: No Currently Unemployed: No Education: High School Diploma/GED Difficulty w/ Childcare or Family Care: No Additional living arrangements comments: [facility]. Spiritual care concerns: No Meds Home Medications and Allergies Home Medications Medication Instructions Recorded Confirmed Type acetaminophen 325 mg tablet 325 mg PO BID 09/17/22 12/21/22 History atorvastatin 40 mg tablet 40 mg PO HS 09/17/22 12/21/22 History benazepril 20 mg tablet 20 mg PO DAILY 09/17/22 12/21/22 History calcium polycarbophil 625 mg 625 mg PO DAILY 09/17/22 12/21/22 History tablet (Fiber-Lax) carvedilol 3.125 mg tablet 3.125 mg PO BID 09/17/22 12/21/22 History cholecalciferol (vitamin D3) 50 2,000 unit PO DAILY 09/17/22 12/21/22 History mcg (2,000 unit) tablet donepezil 10 mg tablet 10 mg PO HS 09/17/22 12/21/22 History duloxetine 30 mg capsule,delayed 30 mg PO DAILY 09/17/22 12/21/22 History release famotidine 20 mg tablet 20 mg PO BID 09/17/22 12/21/22 History levothyroxine 75 mcg tablet 75 mcg PO DAILY 09/17/22 12/21/22 History aspirin 81 mg chewable tablet 81 mg PO DAILY@0800 #30 tabs 09/19/22 12/21/22 Rx ([facility]) empagliflozin 10 mg tablet 10 mg PO DAILY #30 tabs 09/19/22 12/21/22 Rx (Jardiance) furosemide 20 mg tablet 20 mg PO DAILY 12/21/22 12/21/22 History Allergies Allergy/AdvReac Type Severity Reaction Status Date / Time codeine Allergy Unknown Unknown Verified 09/17/22 16:18 hydrocodone Allergy Unknown Unknown Verified 09/17/22 16:18 Vital Signs Vital Signs - 24 hr 12/20/22 21:38 12/21/22 01:54 12/21/22 02:25 Temperature 97.6 F Pulse Rate 60 64 Respiratory Rate 17 15 Blood Pressure 157/56 H 152/54 H Pulse Oximetry 100 100 Oxygen Delivery Room Air Room Air 12/21/22 02:06 12/21/22 05:31 12/21/22 08:30 Temperature 98.5 F 98.3 F Pulse Rate 63 62 67 Respiratory Rate 17 17 14 Blood Pressure 167/49 H 165/51 H 180/52 H Pulse Oximetry 91 93 95 Oxygen Delivery 12/21/22 08:32 Temperature Pulse Rate 68 Respiratory Rate Blood Pressure Pulse Oximetry Oxygen Delivery Exam Narr
[2022-12-21] MEDS: ACETAMINOPHEN 325 MG TABLET PO ×2 (10:52→17:23)
[2022-12-21] MEDS: DULoxetine HCL 30 MG CAPSULE.DR PO (10:52)
[2022-12-21] MEDS: ASPIRIN 81 MG CHEWABLE TABLET PO (10:52)
[2022-12-21] MEDS: calcium polycarbophiL 625 MG TABLET PO (10:52)
[2022-12-21] MEDS: CHOLECALCIFEROL 1,000 UNITS TABLET 2000 UNITS PO (10:53)
[2022-12-21] MEDS: ACETAMINOPHEN 325 MG TABLET 650 MG PO (14:48)
[2022-12-21] MEDS: ATORVASTATIN 40 MG TABLET PO (20:34)
[2022-12-21] MEDS: DONEPEZIL HCL 10 MG TABLET PO (20:34)
[2022-12-22] VITALS (15 sets, daily range): BP systolic 102–179; BP diastolic 58–79; PULSE 60–84; RESP 16–20; TEMP 36.4–37.1; O2SAT 90–100
[2022-12-22] MEDS: LEVOTHYROXINE SODIUM 75 MCG TABLET PO (06:27)
--- NOTE | 2022-12-22 07:15 | WPDHPUPDATE1 ---
History and Physical Update Update Date/Time: 12/22/22 07:15 History and Physical has been reviewed, including an updated exam of the patient. There are NO changes in the patient's condition. Risks, benefits, and alternatives have been discussed and questions answered. Patient agrees to proceed with procedure.
[2022-12-22] MEDS: calcium polycarbophiL 625 MG TABLET PO (08:22)
[2022-12-22] MEDS: FUROSEMIDE 20 MG TABLET PO (08:22)
[2022-12-22] MEDS: carvediloL 3.125 MG TABLET PO ×2 (08:22→20:26)
[2022-12-22] MEDS: ACETAMINOPHEN 325 MG TABLET PO (08:22)
[2022-12-22] MEDS: DULoxetine HCL 30 MG CAPSULE.DR PO (08:22)
[2022-12-22] MEDS: CHOLECALCIFEROL 1,000 UNITS TABLET 2000 UNITS PO (08:22)
[2022-12-22 08:51] LABS: Basophils Absolute Auto 0.1 K/mm3 (0.0-0.1); Basophils Percent Auto 0.5 % (0.2-1.2); Eosinophils Absolute Auto 0.2 K/mm3 (0-0.3); Eosinophils Percent Auto 2.5 % (0-4.4); Hematocrit 34.5 % (37.0-47.0); Immature Granulocyte Absolute 0.04 K/mm3 (0.00-0.031); Immature Granulocyte Percent A 0.4 % (0-0.5); Lymphocytes Absolute Auto 1.48 K/mm3 (0.9-3.2); Lymphocytes Percent Auto 15.2 % (18.3-44.2); Mean Corpuscular HGB Conc 31.9 g/dl (32-36); Mean Corpuscular Hemoglobin 30.1 pg (26-34); Mean Corpuscular Volume 94.3 fl (80-100); Mean Platelet Volume 11.1 fl (7.4-10.4); Monocytes Absolute Auto 0.7 K/mm3 (0.1-0.6); Monocytes Percent Auto 6.7 % (2.6-8.5); Neutrophils Absolute Auto 7.3 K/mm3 (1.3-6.7); Neutrophils Percent Auto 74.7 % (45.5-73.1); Platelet Count Result 199 k/mm3 (150-375); Red Blood Count 3.66 M/mm3 (4.2-5.4); Red Cell Distribution Width 13.8 % (11.5-14.5); White Blood Count 9.8 K/mm3 (4.5-10.0)
[2022-12-22 09:03] LABS: Anion Gap 2 mmol/L (8-16); Blood Urea Nitrogen 17 mg/dL (7-17); Calcium 8.5 mg/dL (8.4-10.2); Carbon Dioxide 30 mmol/L (22-30); Chloride 104 mmol/L (98-107); Estimated CRCL calculation 27 ml/min; Estimated Glomerular Filt Rate 59; Glucose 92 mg/dL (65-110); Magnesium 2.2 mg/dL (1.6-2.3); Potassium 3.7 mmol/L (3.4-5.0); Sodium 136 mmol/L (137-145)
--- NOTE | 2022-12-22 12:40 | PM.IMPN ---
Progress Note: A&P Assessment and Plan (1) Closed fracture of neck of right femur: Qualifiers: Encounter type: initial encounter Qualified Code(s): S72.001A - Fracture of unspecified part of neck of right femur, initial encounter for closed fracture Code(s): S72.001A - Fracture of unspecified part of neck of right femur, initial encounter for closed fracture Status: Acute (2) Ground-level fall: Code(s): W18.30XA - Fall on same level, unspecified, initial encounter Status: Acute Plan 87-year-old female with past medical history of dementia and depression presented with right hip pain after a fall. She lives in [facility].She was standing up to fix a piece of clothing when she turned around and fell.? She states she thought her walker was right behind her but it had rolled away.? She fell onto her right side and was unable to get up off the ground. Found to have fracture of right femur. 1. Right Hip Fracture: Plan for orthopedic surgical intervention today Bedrest until then NPO Pain control P.T./OT post surgical intervention 2. History of heart failure: Stable Continue with Coreg, Lasix 3. History of hypothyroidism: Continue with levothyroxine 4. History of dementia: Continue with Aricept 5. DVT prophylaxis: SCDs for now 6. Code status: DNR 7. Disposition: Pending improvement Time Spent With Patient Time with patient: 15 - 25 minutes Subjective Date/time seen: 12/22/22 12:40 Interval history: no acute events overnight await orthopedic surgical intervention today Review of Systems Review of Systems: All systems reviewed & are unremarkable except as noted in HPI and below Exam Narrative: General: alert Psych: appropriate mood Eyes: PERRLA Neck: Trachea midline, no new lesions Skin: no changes Lungs: CTA Cardiac: Normal S1,S2, no MGR ABD: soft, nd, nt, nbs Ext: no new lesions, no cce Vasc: Pulses intact Objective Data Vital Signs Vital Signs: Vital Signs - 24 hr 12/21/22 14:00 12/21/22 20:37 12/21/22 20:53 Temperature 97.7 F 98.5 F Pulse Rate 59 L 61 61 Respiratory Rate 18 17 Blood Pressure 127/49 L 116/49 L Pulse Oximetry 96 91 Oxygen Delivery 12/22/22 05:25 12/22/22 08:22 12/22/22 08:00 Temperature 98.8 F Pulse Rate 60 60 Respiratory Rate 17 Blood Pressure 149/60 H Pulse Oximetry 94 Oxygen Delivery Room Air Intake/Output Intake/Output: Intake & Output 12/19/22 12/20/22 12/21/22 12/22/22 23:59 23:59 23:59 23:59 Intake Total 840 Output Total 250 350 Balance 590 -350 Meds/Results Medications: Active Medications Generic Name Dose Route Start Last Admin Trade Name Vy PRN Reason Stop Dose Admin Acetaminophen 650 mg 12/21/22 00:44 12/21/22 14:48 Acetaminophen 325 Mg Tablet PO 650 mg Q4H PRN Administration Mild Pain (1-3) or Fever Acetaminophen 325 mg 12/21/22 09:00 12/22/22 08:22 Acetaminophen 325 Mg Tablet PO 325 mg BID LIBORIO Administration Aspirin 81 mg 12/21/22 08:00 12/21/22 10:52 Aspirin 81 Mg Chewable Tablet PO 81 mg DAILY@0800 LIBORIO Administration Atorvastatin Calcium 40 mg 12/21/22 21:00 12/21/22 20:34 Atorvastatin 40 Mg Tablet PO 40 mg HS LIBORIO Administration Calcium Polycarbophil 625 mg 12/21/22 09:00 12/22/22 08:22 Calcium Polycarbophil 625 Mg Tablet PO 625 mg DAILY LIBORIO Administration Carvedilol 3.125 mg 12/21/22 09:00 12/22/22 08:22 Carvedilol 3.125 Mg Tablet PO 3.125 mg Q12HR LIBORIO Administration Donepezil HCl 10 mg 12/21/22 21:00 12/21/22 20:34 Donepezil Hcl 10 Mg Tablet PO 10 mg HS LIBORIO Administration Duloxetine HCl 30 mg 12/21/22 09:00 12/22/22 08:22 Duloxetine Hcl 30 Mg Capsule.Dr PO 30 mg DAILY LIBORIO Administration Famotidine 20 mg 12/21/22 09:00 Famotidine 20 Mg Tablet PO BID LIBORIO Furosemide 20 mg 12/21/22 09:00 12/22/22 08:22 Furosemide 20 Mg Tablet
[2022-12-22] MEDS: TRANEXAMIC ACID 1,000MG/ISO100 1,000 MG/100 ML BAG 200 MG IVPB (12:54)
[2022-12-22] MEDS: LACTATED RINGERS 1,000 ML 30 ML IV CONT (13:00)
[2022-12-22] MEDS: ceFAZolin 2 GM/D5W 50 ML 2 GM/50 ML BAG IVPB ×2 (15:12→18:04)
--- NOTE | 2022-12-22 16:05 | W.PM.PROC2 ---
Procedure Note - Detailed Date of Procedure 12/22/22 Pre-op Diagnosis Right Femoral Neck Fracture Post-op Diagnosis Same Procedure Performed PERCUTANEOUS PINNING RIGHT FEMORAL NECK FRACTURE Surgeon Aleksandr Mason MD Anesthesia General Description of Procedure THE PATIENT WAS TAKEN TO THE OPERATING ROOM AND PLACED UNDER GENERAL ANESTHESIA. THE PATIENT WAS PLACED ON A FRACTURE TABLE. USING TRACTION AND ROTATION THE FEMORAL NECK FRACTURE WAS REDUCED TO NEAR ANATOMIC POSITION. THE RIGHT LOWER EXTREMITY WAS PREPPED AND DRAPED IN THE STERILE FASHION FROM THE KNEE TO THE ILIAC CREST. THE INCISION WAS MADE ON THE LATERAL HIP JUST DISTAL TO THE GREATER TROCHANTER DOWN TO THE BONE. BLEEDERS WERE CAUTERIZED. 3 GUIDE PINS WERE PLACED THROUGH THE FEMORAL NECK AND PASSED THE FRACTURE SITE AND IN TO THE SUBCHONDRAL BONE OF THE FEMORAL HEAD. THREE 7.3 CANNULATED SCREWS WERE PLACED OVER THE GUIDE PINS AND THESE WERE SHOWN TO BE IN GOOD POSITION PER FLUOROSCOPY ON BOTH THE AP AND LATERAL VIEWS. ALL SCREWS HAD EXCELLENT BITES. THE WOUND WAS WASHED WELL. THE DEEP FASCIAL LAYER WAS APPROXIMATED WITH 2-0 VICRYL SUTURE, THE SUBCUTANEOUS LAYER WITH 2-0 VICRYL AND THE SKIN WAS APPROXIMATED WITH ANTOINETTE. A STERILE DRESSING WAS PLACED. THE PATIENT WAS EXTUBATED AND SENT TO RECOVERY ROOM Estimated Blood Loss 20 Drains No Complications No immediate complications Condition Stable Disposition PACU
[2022-12-22] MEDS: HYDROcodone/acetaminophen (*CRX) 5-325 MG TABLET 2 TAB PO (17:26)
[2022-12-22] MEDS: DEXTROSE 5%/0.45% SOD CHL 1,000 ML 80 ML IV CONT (17:27)
[2022-12-22] MEDS: SENNA/DOCUSATE SODIUM TABLET 2 TAB PO (17:27)
[2022-12-22] MEDS: FAMOTIDINE 20 MG TABLET PO (20:25)
[2022-12-22] MEDS: HEPARIN SODIUM 5,000 UNITS/ML VIAL 5000 UNITS SUB-Q (20:26)
[2022-12-22] MEDS: DONEPEZIL HCL 10 MG TABLET PO (20:26)
[2022-12-22] MEDS: ATORVASTATIN 40 MG TABLET PO (20:26)
[2022-12-23] VITALS (8 sets, daily range): BP systolic 117–136; BP diastolic 45–61; PULSE 56–80; RESP 16–18; TEMP 36.1–37; O2SAT 90–96
[2022-12-23] MEDS: ceFAZolin 2 GM/D5W 50 ML 2 GM/50 ML BAG IVPB ×2 (03:18→12:24)
[2022-12-23] MEDS: LEVOTHYROXINE SODIUM 75 MCG TABLET PO (05:18)
[2022-12-23 05:37] LABS: Basophils Percent Auto 0.3 % (0.2-1.2); Eosinophils Percent Auto 0.1 % (0-4.4); Hematocrit 34.3 % (37.0-47.0); Hemoglobin 10.9 g/dL (12.0-15.0); Immature Granulocyte Absolute 0.06 K/mm3 (0.00-0.031); Immature Granulocyte Percent A 0.6 % (0-0.5); Lymphocytes Absolute Auto 0.71 K/mm3 (0.9-3.2); Lymphocytes Percent Auto 7.1 % (18.3-44.2); Mean Corpuscular HGB Conc 31.8 g/dl (32-36); Mean Corpuscular Hemoglobin 30.2 pg (26-34); Mean Platelet Volume 11.5 fl (7.4-10.4); Monocytes Absolute Auto 0.5 K/mm3 (0.1-0.6); Monocytes Percent Auto 4.9 % (2.6-8.5); Neutrophils Absolute Auto 8.8 K/mm3 (1.3-6.7); Platelet Count Result 238 k/mm3 (150-375); Red Blood Count 3.61 M/mm3 (4.2-5.4); Red Cell Distribution Width 13.4 % (11.5-14.5); White Blood Count 10.1 K/mm3 (4.5-10.0)
[2022-12-23 05:47] LABS: Anion Gap 5 mmol/L (8-16); Blood Urea Nitrogen 22 mg/dL (7-17); Calcium 8.4 mg/dL (8.4-10.2); Carbon Dioxide 26 mmol/L (22-30); Chloride 104 mmol/L (98-107); Estimated CRCL calculation 23 ml/min; Estimated Glomerular Filt Rate 47; Glucose 115 mg/dL (65-110); Potassium 4.4 mmol/L (3.4-5.0); Sodium 135 mmol/L (137-145)
[2022-12-23] MEDS: CHOLECALCIFEROL 1,000 UNITS TABLET 2000 UNITS PO (08:54)
[2022-12-23] MEDS: DULoxetine HCL 30 MG CAPSULE.DR PO (08:54)
[2022-12-23] MEDS: calcium polycarbophiL 625 MG TABLET PO (08:54)
[2022-12-23] MEDS: ACETAMINOPHEN 325 MG TABLET PO ×2 (08:55→18:22)
[2022-12-23] MEDS: SENNA/DOCUSATE SODIUM TABLET 2 TAB PO ×2 (08:55→18:21)
[2022-12-23] MEDS: lisinopriL 20 MG TABLET PO (08:55)
[2022-12-23] MEDS: FUROSEMIDE 20 MG TABLET PO (08:55)
[2022-12-23] MEDS: ASPIRIN 81 MG CHEWABLE TABLET PO (08:55)
[2022-12-23] MEDS: FAMOTIDINE 20 MG TABLET PO ×2 (08:55→22:03)
[2022-12-23] MEDS: polyethylene glycoL 3350 17 GM POWD.PACK PO (08:56)
[2022-12-23] MEDS: carvediloL 3.125 MG TABLET PO ×2 (08:56→22:02)
--- NOTE | 2022-12-23 09:16 | PM.PNORT ---
Progress Note: A&P Assessment and Plan (1) Closed fracture of neck of right femur: Qualifiers: Encounter type: initial encounter Qualified Code(s): S72.001A - Fracture of unspecified part of neck of right femur, initial encounter for closed fracture Code(s): S72.001A - Fracture of unspecified part of neck of right femur, initial encounter for closed fracture Status: Acute Assessment and Plan: POD #1 : CRPP Right Hip Continue PT/OT. WBAT. Walker. HIGH FALL RISK. Continue pain control. Ice Hip. Protect skin. DVT prophylaxis with resumed Aspirin and added Heparin. Plan for conitnuation of Heparin at discharge per Dr. Santos. SCDs. Incentive Spirometry Use reviewed. Monitor Dressing. Change daily. Bowel Regimen. Dispo: SNF for acute rehab pending medical clearance. Follow up in 6 weeks for reevaluation. (2) Ground-level fall: Code(s): W18.30XA - Fall on same level, unspecified, initial encounter Status: Acute (3) Congestive heart failure: Qualifiers: Heart failure chronicity: chronic Heart failure type: unspecified Qualified Code(s): I50.9 - Heart failure, unspecified Code(s): I50.9 - Heart failure, unspecified Status: Acute Plan Reviewed postoperative labs, vitals and exam with attending MD, Dr. Mason. Agrees with current plan as indicated above. No further recommendations at this time. Subjective Subjective Date/Time Seen: 12/23/22 09:16 Post Op day: 1 Interval history: POD #1: CRPP Right Hip Patient with complaints of pain this morning. Beginning therapy with PT at time of exam. Overall, family/patient concerned about discharge planning. Hopeful for discharge to rehab at [facility]. Review of Systems Review of Systems: All systems reviewed & are unremarkable except as noted in HPI and below Constitutional: Constitutional: Denies chills, Denies fever(s), Denies headache(s), Denies lethargy and Reports weakness ENT: Denies headache(s) Cardiovascular: Cardiovascular: Denies chest pain, Denies diaphoresis, Denies lightheadedness, Denies palpitations, Denies dyspnea and Denies dyspnea on exertion Respiratory: Respiratory: Denies cough, Denies dyspnea and Denies dyspnea on exertion Gastrointestinal: Gastrointestinal: Denies constipation, Denies diarrhea, Denies nausea and Denies vomiting Genitourinary: Genitourinary: Reports urinary frequency, Denies dysuria and Denies urinary hesitancy Musculoskeletal: Musculoskeletal: Reports joint swelling (Right Hip ) and Reports limited range of motion (Right Hip due to recent surgery ) Neurologic: Denies headache(s) and Reports weakness Endocrine: Endocrine: Denies palpitations Exam Const: General: comfortable and no acute distress Resp: Effort & Inspection: normal respiratory effort Cardio: Rate: regular rate Rhythm: regular rhythm GI: Inspection: non-distended Skin: General skin exam: normal color Other: Incision right hip c/d/i. Surrounding tissue without redness/warmth. Mild swelling consistent with recent surgery. No drainage. Neuro: Cognition (Neuro): normal cognition Speech: normal speech Extrem: Right lower extremity: normal to inspection, normal capillary refill, hip/thigh Details: tenderness Location: of the hip (Thigh soft ) Location: laterally and anteriorly, swelling Location: at the hip, abnormal ROM (limited consistent with recent surgery ) Details: pain with active ROM during and pain with passive ROM during and other (Incision c/d/i. ); no deformity and no unusual warmth, knee Details: normal to inspection; no tenderness and no swelling, lower leg (Negative Petey's Sign ) Details: normal to inspection and no edema; no tenderness, ankle (+ankle dorsiflexion/plantarflexion) Details: normal to inspection and no edema; no tenderness, no swelling and no ecchymosis and foot Details: normal capillary refill, toes with normal ROM, vascular exam Details: dorsalis pedis pulse p
[2022-12-23] MEDS: HEPARIN SODIUM 5,000 UNITS/ML VIAL 5000 UNITS SUB-Q ×2 (11:52→22:02)
--- NOTE | 2022-12-23 12:50 | PM.IMPN ---
Progress Note: A&P Assessment and Plan (1) Closed fracture of neck of right femur: Qualifiers: Encounter type: initial encounter Qualified Code(s): S72.001A - Fracture of unspecified part of neck of right femur, initial encounter for closed fracture Code(s): S72.001A - Fracture of unspecified part of neck of right femur, initial encounter for closed fracture Status: Acute (2) Ground-level fall: Code(s): W18.30XA - Fall on same level, unspecified, initial encounter Status: Acute Plan 87-year-old female with past medical history of dementia and depression presented with right hip pain after a fall. She lives in [facility].She was standing up to fix a piece of clothing when she turned around and fell.? She states she thought her walker was right behind her but it had rolled away.? She fell onto her right side and was unable to get up off the ground. Found to have fracture of right femur. 1. Right Hip Fracture: s/p PERCUTANEOUS PINNING RIGHT FEMORAL NECK FRACTURE POD#1 PT/OT as tolerated Pain control Mild leukocytosis noted post surgical intervention Will recheck CBC in the morning 2. History of heart failure: Stable Continue with Coreg 3. History of hypothyroidism: Continue with levothyroxine 4. NICOLE: Mild Hold Lasix and lisinopril Recheck BMP in a.m. Avoid nephrotoxins 5. History of dementia: Continue with Aricept 6. DVT prophylaxis: Heparin subQ 7. Code status: DNR 8. Disposition: Will need placement. Time Spent With Patient Time with patient: 15 - 25 minutes Subjective Date/time seen: 12/23/22 12:50 Interval history: s/p PERCUTANEOUS PINNING RIGHT FEMORAL NECK FRACTURE Patient pleasantly confused Review of Systems Review of Systems: ROS unobtainable: Yes unobtainable due to mental status Exam Narrative: General: alert Psych: appropriate mood Eyes: PERRLA Neck: Trachea midline, no new lesions Skin: no changes Lungs: CTA Cardiac: Normal S1,S2, no MGR ABD: soft, nd, nt, nbs Ext: no new lesions, Dressing C/D/I on right hip Vasc: Pulses intact Objective Data Vital Signs Vital Signs: Vital Signs - 24 hr 12/22/22 12:59 12/22/22 16:05 12/22/22 16:15 Temperature 97.7 F 98.7 F Pulse Rate 62 64 64 Respiratory Rate 20 16 16 Blood Pressure 102/64 175/70 H 163/62 H Pulse Oximetry 96 100 100 Oxygen Delivery Room Air Simple Face Mask Simple Face Mask Oxygen Flow Rate 10 10 12/22/22 16:30 12/22/22 16:45 12/22/22 16:59 Temperature Pulse Rate 65 73 70 Respiratory Rate 19 20 20 Blood Pressure 172/69 H 174/73 H 174/71 H Pulse Oximetry 100 100 100 Oxygen Delivery Nasal Cannula Nasal Cannula Nasal Cannula Oxygen Flow Rate 2 2 2 12/22/22 17:13 12/22/22 17:25 12/22/22 18:55 Temperature 97.6 F 98.1 F 98.3 F Pulse Rate 64 71 84 Respiratory Rate 16 18 18 Blood Pressure 171/58 H 171/66 H 155/64 H Pulse Oximetry 100 100 94 Oxygen Delivery Oxygen Flow Rate 12/22/22 17:55 12/22/22 22:40 12/23/22 02:33 Temperature 98.4 F 97.6 F 98.6 F Pulse Rate 71 74 71 Respiratory Rate 18 17 18 Blood Pressure 179/79 H 141/75 H 127/57 L Pulse Oximetry 98 95 90 Oxygen Delivery Oxygen Flow Rate 12/22/22 20:00 12/22/22 23:52 12/23/22 06:33 Temperature 98.1 F Pulse Rate 71 60 Respiratory Rate 18 17 Blood Pressure 136/61 Pulse Oximetry 90 92 92 Oxygen Delivery Nasal Cannula Nasal Cannula Oxygen Flow Rate 1 1 12/23/22 08:30 12/23/22 08:56 12/23/22 08:50 Temperature Pulse Rate 80 80 Respiratory Rate Blood Pressure 124/56 L Pulse Oximetry Oxygen Delivery Room Air Oxygen Flow Rate Intake/Output Intake/Output: Intake & Output 12/20/22 12/21/22 12/22/22 12/23/22 23:59 23:59 23:59 23:59 Intake Total 840 590 170 Output Total 250 500 200 Balance 590 90 -30 Meds/Results Medications: Active Medications Generic Name Dose Route Start Last Admin Trade Name Freq PRN Reason S
[2022-12-23] MEDS: DONEPEZIL HCL 10 MG TABLET PO (22:02)
[2022-12-23] MEDS: ATORVASTATIN 40 MG TABLET PO (22:02)
[2022-12-24] VITALS (8 sets, daily range): BP systolic 116–161; BP diastolic 51–87; PULSE 60–64; RESP 15–18; TEMP 36.1–37; O2SAT 90–100
[2022-12-24 05:15] LABS: Basophils Absolute Auto 0.1 K/mm3 (0.0-0.1); Basophils Percent Auto 0.5 % (0.2-1.2); Eosinophils Absolute Auto 0.2 K/mm3 (0-0.3); Eosinophils Percent Auto 2.1 % (0-4.4); Hematocrit 36.5 % (37.0-47.0); Hemoglobin 11.4 g/dL (12.0-15.0); Immature Granulocyte Absolute 0.05 K/mm3 (0.00-0.031); Immature Granulocyte Percent A 0.4 % (0-0.5); Lymphocytes Absolute Auto 2.29 K/mm3 (0.9-3.2); Lymphocytes Percent Auto 19.6 % (18.3-44.2); Mean Corpuscular HGB Conc 31.2 g/dl (32-36); Mean Corpuscular Volume 96.1 fl (80-100); Mean Platelet Volume 11.4 fl (7.4-10.4); Monocytes Absolute Auto 1.4 K/mm3 (0.1-0.6); Neutrophils Absolute Auto 7.7 K/mm3 (1.3-6.7); Neutrophils Percent Auto 65.4 % (45.5-73.1); Platelet Count Result 235 k/mm3 (150-375); Red Cell Distribution Width 13.5 % (11.5-14.5); White Blood Count 11.7 K/mm3 (4.5-10.0)
[2022-12-24 05:20] LABS: Anion Gap 6 mmol/L (8-16); Blood Urea Nitrogen 30 mg/dL (7-17); Calcium 8.7 mg/dL (8.4-10.2); Carbon Dioxide 26 mmol/L (22-30); Chloride 104 mmol/L (98-107); Estimated CRCL calculation 23 ml/min; Estimated Glomerular Filt Rate 47; Glucose 82 mg/dL (65-110); Sodium 136 mmol/L (137-145)
[2022-12-24] MEDS: LEVOTHYROXINE SODIUM 75 MCG TABLET PO (05:37)
[2022-12-24] MEDS: SENNA/DOCUSATE SODIUM TABLET 2 TAB PO ×2 (08:48→17:06)
[2022-12-24] MEDS: ACETAMINOPHEN 325 MG TABLET PO ×2 (08:48→17:06)
[2022-12-24] MEDS: ASPIRIN 81 MG CHEWABLE TABLET PO (08:48)
[2022-12-24] MEDS: DULoxetine HCL 30 MG CAPSULE.DR PO (08:48)
[2022-12-24] MEDS: HEPARIN SODIUM 5,000 UNITS/ML VIAL 5000 UNITS SUB-Q ×2 (08:49→20:53)
[2022-12-24] MEDS: carvediloL 3.125 MG TABLET PO ×2 (08:49→20:53)
[2022-12-24] MEDS: calcium polycarbophiL 625 MG TABLET PO (08:49)
[2022-12-24] MEDS: CHOLECALCIFEROL 1,000 UNITS TABLET 2000 UNITS PO (08:49)
[2022-12-24] MEDS: polyethylene glycoL 3350 17 GM POWD.PACK PO (08:49)
[2022-12-24] MEDS: FAMOTIDINE 20 MG TABLET PO (08:50)
--- NOTE | 2022-12-24 09:28 | PM.PNORT ---
Progress Note: A&P Assessment and Plan (1) Closed fracture of neck of right femur: Qualifiers: Encounter type: initial encounter Qualified Code(s): S72.001A - Fracture of unspecified part of neck of right femur, initial encounter for closed fracture Code(s): S72.001A - Fracture of unspecified part of neck of right femur, initial encounter for closed fracture Status: Acute Assessment and Plan: POD #2: CRPP Right Hip Continue PT/OT. WBAT. Walker. HIGH FALL RISK. Continue pain control. Ice Hip. Protect skin. DVT prophylaxis with resumed Aspirin and added Heparin. Plan for continuation of Heparin at discharge per Dr. Santos. SCDs. Incentive Spirometry Use reviewed. Monitor Dressing. Change daily. Bowel Regimen. Dispo: SNF for acute rehab pending medical clearance. Follow up in 6 weeks for reevaluation. (2) Ground-level fall: Code(s): W18.30XA - Fall on same level, unspecified, initial encounter Status: Acute (3) Congestive heart failure: Qualifiers: Heart failure chronicity: chronic Heart failure type: unspecified Qualified Code(s): I50.9 - Heart failure, unspecified Code(s): I50.9 - Heart failure, unspecified Status: Acute Plan Reviewed postoperative labs, vitals and exam with attending MD, Dr. Mason. Agrees with current plan as indicated above. No further recommendations at this time. Subjective Subjective Date/Time Seen: 12/24/22 09:28 Post Op day: 2 Interval history: POD #2: CRPP Right Hip No new complaints today. Hopeful for discharge to rehab at [place]. Review of Systems Review of Systems: All systems reviewed & are unremarkable except as noted in HPI and below Constitutional: Constitutional: Denies chills, Denies fever(s), Denies headache(s), Denies lethargy and Reports weakness ENT: Denies headache(s) Cardiovascular: Cardiovascular: Denies chest pain, Denies diaphoresis, Denies lightheadedness, Denies palpitations, Denies dyspnea and Denies dyspnea on exertion Respiratory: Respiratory: Denies cough, Denies dyspnea and Denies dyspnea on exertion Gastrointestinal: Gastrointestinal: Denies constipation, Denies diarrhea, Denies nausea and Denies vomiting Genitourinary: Genitourinary: Reports urinary frequency, Denies dysuria and Denies urinary hesitancy Musculoskeletal: Musculoskeletal: Reports joint swelling (Right Hip ) and Reports limited range of motion (Right Hip due to recent surgery ) Neurologic: Denies headache(s) and Reports weakness Endocrine: Endocrine: Denies palpitations Exam Const: General: comfortable and no acute distress Resp: Effort & Inspection: normal respiratory effort Cardio: Rate: regular rate Rhythm: regular rhythm GI: Inspection: non-distended Skin: General skin exam: normal color Other: Incision right hip c/d/i. Surrounding tissue without redness/warmth. Mild swelling consistent with recent surgery. No drainage. Neuro: Cognition (Neuro): normal cognition Speech: normal speech Extrem: Right lower extremity: normal to inspection, normal capillary refill, hip/thigh Details: tenderness Location: of the hip (Thigh soft ) Location: laterally and anteriorly, swelling Location: at the hip, abnormal ROM (limited consistent with recent surgery ) Details: pain with active ROM during and pain with passive ROM during and other (Incision c/d/i. ); no deformity and no unusual warmth, knee Details: normal to inspection; no tenderness and no swelling, lower leg (Negative Petey's Sign ) Details: normal to inspection and no edema; no tenderness, ankle (+ankle dorsiflexion/plantarflexion) Details: normal to inspection and no edema; no tenderness, no swelling and no ecchymosis and foot Details: normal capillary refill, toes with normal ROM, vascular exam Details: dorsalis pedis pulse present and motor-sensory exam Details: light-touch normal; no tenderness Objective Data Vital Signs Vital Signs: Vital
--- NOTE | 2022-12-24 12:45 | PM.IMPN ---
Progress Note: A&P Assessment and Plan (1) Closed fracture of neck of right femur: Qualifiers: Encounter type: initial encounter Qualified Code(s): S72.001A - Fracture of unspecified part of neck of right femur, initial encounter for closed fracture Code(s): S72.001A - Fracture of unspecified part of neck of right femur, initial encounter for closed fracture Status: Acute (2) Ground-level fall: Code(s): W18.30XA - Fall on same level, unspecified, initial encounter Status: Acute Plan 87-year-old female with past medical history of dementia and depression presented with right hip pain after a fall. She lives in [facility].She was standing up to fix a piece of clothing when she turned around and fell.? She states she thought her walker was right behind her but it had rolled away.? She fell onto her right side and was unable to get up off the ground. Found to have fracture of right femur. 1. Right Hip Fracture: s/p PERCUTANEOUS PINNING RIGHT FEMORAL NECK FRACTURE POD#2 PT/OT as tolerated Pain control Mild leukocytosis noted post surgical intervention Will recheck CBC in the morning 2. History of heart failure: Stable Continue with Coreg 3. History of hypothyroidism: Continue with levothyroxine 4. NICOLE: Mild, remains stable Hold Lasix and lisinopril Recheck BMP in a.m. Avoid nephrotoxins 5. History of dementia: Continue with Aricept 6. DVT prophylaxis: Heparin subQ 7. Code status: DNR 8. Disposition: Await placement Time Spent With Patient Time with patient: 15 - 25 minutes Subjective Date/time seen: 12/24/22 12:45 Interval history: No acute events overnight Review of Systems Review of Systems: All systems reviewed & are unremarkable except as noted in HPI and below Exam Narrative: General: alert Psych: appropriate mood Eyes: PERRLA Neck: Trachea midline, no new lesions Skin: no changes Lungs: CTA Cardiac: Normal S1,S2, no MGR ABD: soft, nd, nt, nbs Ext: no new lesions, Dressing C/D/I on right hip Vasc: Pulses intact Objective Data Vital Signs Vital Signs: Vital Signs - 24 hr 12/23/22 14:47 12/23/22 18:47 12/23/22 20:32 Temperature 98.3 F 97.4 F L 97.0 F L Pulse Rate 57 L 56 L 61 Respiratory Rate 16 16 18 Blood Pressure 117/45 L 130/50 L 124/48 L Pulse Oximetry 95 96 95 Oxygen Delivery 12/23/22 22:02 12/23/22 21:50 12/24/22 05:20 Temperature 97.6 F Pulse Rate 61 60 Respiratory Rate 18 Blood Pressure 161/53 H Pulse Oximetry 98 Oxygen Delivery Room Air 12/24/22 08:46 12/24/22 08:49 12/24/22 08:50 Temperature Pulse Rate 64 64 Respiratory Rate 16 Blood Pressure 143/52 H Pulse Oximetry 98 Oxygen Delivery Room Air Intake/Output Intake/Output: Intake & Output 12/21/22 12/22/22 12/23/22 12/24/22 23:59 23:59 23:59 23:59 Intake Total 840 590 710 358 Output Total 250 500 825 500 Balance 590 17 -064 -933 Meds/Results Medications: Active Medications Generic Name Dose Route Start Last Admin Trade Name Freq PRN Reason Stop Dose Admin Acetaminophen 325 mg 12/21/22 09:00 12/24/22 08:48 Acetaminophen 325 Mg Tablet PO 325 mg BID LIBORIO Administration Hydrocodone Bitart/Acetaminophen 1 tab 12/22/22 17:02 Hydrocodone/Acetaminophen (*Crx) 5-325 Mg Tablet PO Q3H PRN Pain Rated 4-6 Hydrocodone Bitart/Acetaminophen 2 tab 12/22/22 17:02 12/22/22 17:26 Hydrocodone/Acetaminophen (*Crx) 5-325 Mg Tablet PO 2 tab Q6H PRN Administration Pain Rated 7-10 Aspirin 81 mg 12/21/22 08:00 12/24/22 08:48 Aspirin 81 Mg Chewable Tablet PO 81 mg DAILY@0800 LIBORIO Administration Atorvastatin Calcium 40 mg 12/21/22 21:00 12/23/22 22:02 Atorvastatin 40 Mg Tablet PO 40 mg HS LIBORIO Administration Calcium Polycarbophil 625 mg 12/21/22 09:00 12/24/22 08:49 Calcium Polycarbophil 625 Mg Tablet PO 625 mg DAILY LIBORIO Administration Carvedilol
[2022-12-24] MEDS: DONEPEZIL HCL 10 MG TABLET PO (20:53)
[2022-12-24] MEDS: ATORVASTATIN 40 MG TABLET PO (20:53)
[2022-12-25 05:00] VITALS: BP 130/50; PULSE 60; RESP 14; TEMP 36.6; O2SAT 100
[2022-12-25] MEDS: LEVOTHYROXINE SODIUM 75 MCG TABLET PO (05:22)
[2022-12-25 05:48] LABS: Anion Gap 6 mmol/L (8-16); Blood Urea Nitrogen 29 mg/dL (7-17); Calcium 8.9 mg/dL (8.4-10.2); Carbon Dioxide 28 mmol/L (22-30); Chloride 103 mmol/L (98-107); Estimated CRCL calculation 27 ml/min; Estimated Glomerular Filt Rate 59; Glucose 72 mg/dL (65-110); Potassium 4.3 mmol/L (3.4-5.0); Sodium 137 mmol/L (137-145)
[2022-12-25 05:51] LABS: Basophils Absolute Auto 0.1 K/mm3 (0.0-0.1); Basophils Percent Auto 0.9 % (0.2-1.2); Eosinophils Absolute Auto 0.3 K/mm3 (0-0.3); Eosinophils Percent Auto 3.3 % (0-4.4); Hematocrit 38.5 % (37.0-47.0); Hemoglobin 11.8 g/dL (12.0-15.0); Immature Granulocyte Absolute 0.07 K/mm3 (0.00-0.031); Immature Granulocyte Percent A 0.8 % (0-0.5); Lymphocytes Absolute Auto 2.09 K/mm3 (0.9-3.2); Mean Corpuscular HGB Conc 30.6 g/dl (32-36); Mean Corpuscular Hemoglobin 29.7 pg (26-34); Mean Platelet Volume 11.7 fl (7.4-10.4); Monocytes Absolute Auto 1.1 K/mm3 (0.1-0.6); Monocytes Percent Auto 12.2 % (2.6-8.5); Neutrophils Absolute Auto 5.4 K/mm3 (1.3-6.7); Neutrophils Percent Auto 59.8 % (45.5-73.1); Platelet Count Result 246 k/mm3 (150-375); Red Blood Count 3.97 M/mm3 (4.2-5.4); Red Cell Distribution Width 13.3 % (11.5-14.5); White Blood Count 9.1 K/mm3 (4.5-10.0)
[2022-12-25 08:00] VITALS: BP 130/57; PULSE 60; RESP 16; TEMP 36.5; O2SAT 98
[2022-12-25 10:07] VITALS: BP 144/52; PULSE 74; RESP 16; O2SAT 93
[2022-12-25 10:10] VITALS: PULSE 78
[2022-12-25] MEDS: ASPIRIN 81 MG CHEWABLE TABLET PO (10:10)
[2022-12-25] MEDS: CHOLECALCIFEROL 1,000 UNITS TABLET 2000 UNITS PO (10:10)
[2022-12-25] MEDS: carvediloL 3.125 MG TABLET PO (10:10)
[2022-12-25] MEDS: calcium polycarbophiL 625 MG TABLET PO (10:10)
[2022-12-25] MEDS: FAMOTIDINE 10 MG TABLET PO (10:10)
[2022-12-25] MEDS: ACETAMINOPHEN 325 MG TABLET PO ×2 (10:10→17:27)
[2022-12-25] MEDS: polyethylene glycoL 3350 17 GM POWD.PACK PO (10:11)
[2022-12-25] MEDS: DULoxetine HCL 30 MG CAPSULE.DR PO (10:15)
[2022-12-25] MEDS: HEPARIN SODIUM 5,000 UNITS/ML VIAL 5000 UNITS SUB-Q (10:15)
--- NOTE | 2022-12-25 10:21 | PM.IMPN ---
Subjective Date/time seen: 12/25/22 10:21 Objective Data Vital Signs Vital Signs: Vital Signs - 24 hr 12/24/22 12:55 12/24/22 13:26 12/24/22 16:09 Temperature 36.1 C L 37.0 C Pulse Rate 60 60 Respiratory Rate 15 16 Blood Pressure 116/66 145/87 H Pulse Oximetry 90 100 96 Oxygen Delivery 12/24/22 19:57 12/24/22 20:53 12/24/22 20:45 Temperature 36.8 C Pulse Rate 60 60 Respiratory Rate 16 Blood Pressure 142/51 H Pulse Oximetry 94 Oxygen Delivery Room Air 12/25/22 05:00 12/25/22 08:00 12/25/22 10:07 Temperature 36.6 C 36.5 C Pulse Rate 60 60 74 Respiratory Rate 14 16 16 Blood Pressure 130/50 L 130/57 L 144/52 H Pulse Oximetry 100 98 93 Oxygen Delivery 12/25/22 10:10 Temperature Pulse Rate 78 Respiratory Rate Blood Pressure Pulse Oximetry Oxygen Delivery Intake/Output Intake/Output: Intake & Output 12/22/22 12/23/22 12/24/22 12/25/22 23:59 23:59 23:59 23:59 Intake Total 590 710 838 50 Output Total 283 210 9252 450 Balance 90 -993 -412 400 Meds/Results Medications: Active Medications Generic Name Dose Route Start Last Admin Trade Name Freq PRN Reason Stop Dose Admin Acetaminophen 325 mg 12/21/22 09:00 12/25/22 10:10 Acetaminophen 325 Mg Tablet PO 325 mg BID LIBORIO Administration Hydrocodone Bitart/Acetaminophen 1 tab 12/22/22 17:02 Hydrocodone/Acetaminophen (*Crx) 5-325 Mg Tablet PO Q3H PRN Pain Rated 4-6 Hydrocodone Bitart/Acetaminophen 2 tab 12/22/22 17:02 12/22/22 17:26 Hydrocodone/Acetaminophen (*Crx) 5-325 Mg Tablet PO 2 tab Q6H PRN Administration Pain Rated 7-10 Aspirin 81 mg 12/21/22 08:00 12/25/22 10:10 Aspirin 81 Mg Chewable Tablet PO 81 mg DAILY@0800 LIBORIO Administration Atorvastatin Calcium 40 mg 12/21/22 21:00 12/24/22 20:53 Atorvastatin 40 Mg Tablet PO 40 mg HS LIBORIO Administration Calcium Polycarbophil 625 mg 12/21/22 09:00 12/25/22 10:10 Calcium Polycarbophil 625 Mg Tablet PO 625 mg DAILY LIBORIO Administration Carvedilol 3.125 mg 12/21/22 09:00 12/25/22 10:10 Carvedilol 3.125 Mg Tablet PO 3.125 mg Q12HR LIBORIO Administration Diazepam 5 mg 12/22/22 17:02 Diazepam (*Crx) 5 Mg Tablet PO Q8H PRN Muscle Spasm Donepezil HCl 10 mg 12/21/22 21:00 12/24/22 20:53 Donepezil Hcl 10 Mg Tablet PO 10 mg HS LIBORIO Administration Duloxetine HCl 30 mg 12/21/22 09:00 12/25/22 10:15 Duloxetine Hcl 30 Mg Capsule.Dr PO 30 mg DAILY LIBORIO Administration Famotidine 10 mg 12/25/22 09:00 12/25/22 10:10 Famotidine 10 Mg Tablet PO 10 mg DAILY LIBORIO Administration Furosemide 20 mg 12/21/22 09:00 12/23/22 08:55 Furosemide 20 Mg Tablet PO 20 mg DAILY LIBORIO Administration Heparin Sodium (Porcine) 5,000 units 12/22/22 21:00 12/25/22 10:15 Heparin Sodium 5,000 Units/Ml Vial SUB-Q 5,000 units Q12HR LIBORIO Administration Levothyroxine Sodium 75 mcg 12/21/22 08:00 12/25/22 05:22 Levothyroxine Sodium 75 Mcg Tablet PO 75 mcg DAILY@0630 LIBORIO Administration Lisinopril 20 mg 12/23/22 09:00 12/23/22 08:55 Lisinopril 20 Mg Tablet PO 20 mg DAILY LIBORIO Administration Naloxone HCl 0.1 mg 12/22/22 17:02 Naloxone Hcl 0.4 Mg/Ml Vial IV PUSH Q2M PRN Opiate Reversal Ondansetron HCl 4 mg 12/22/22 17:02 Ondansetron Inj 4 Mg/2 Ml Vial IV PUSH Q4H PRN Nausea And Vomiting Polyethylene Glycol 17 gm 12/23/22 09:00 12/25/22 10:11 Polyethylene Glycol 3350 17 Gm Powd.Pack PO 17 gm QAM LIBORIO Administration Senna/Docusate Sodium 2 tab 12/22/22 17:02 12/25/22 10:08 Senna/Docusate Sodium Tablet PO Not Given BID [facility] Vitamin D 2,000 units 12/21/22 09:00 12/25/22 10:10 Cholecalciferol 1,000 Units Tablet PO 2,000 units DAILY LIBORIO Administration Radiology Results: ITS Impressions Hip/Pelvis X-Ray 12/20/22 22:26 IMPRESSION: Mildly displaced right femoral neck fracture.
[2022-12-25 10:57] VITALS: O2SAT 97
--- NOTE | 2022-12-25 11:17 | PM.DS ---
DS: Admitting Diagnosis Discharge Date 12/25/2022 Admitting Diagnosis closed fracture of neck of right femur, history of congestive heart failure, hypothyroidism hyperlipidemia, hypertension, coronary artery disease, GERD DS: Discharge Diagnosis Discharge Diagnosis (1) Closed fracture of neck of right femur: Qualifiers: Encounter type: initial encounter Qualified Code(s): S72.001A - Fracture of unspecified part of neck of right femur, initial encounter for closed fracture Code(s): S72.001A - Fracture of unspecified part of neck of right femur, initial encounter for closed fracture Status: Acute (2) Ground-level fall: Code(s): W18.30XA - Fall on same level, unspecified, initial encounter Status: Acute (3) Hypothyroidism: Code(s): E03.9 - Hypothyroidism, unspecified Status: Acute (4) NICOLE (acute kidney injury): Code(s): N17.9 - Acute kidney failure, unspecified Status: Acute (5) Dementia: Qualifiers: Dementia behavioral or psychological symptom: unspecified whether behavioral, psychotic, or mood disturbance or anxiety Dementia severity: unspecified severity Dementia type: unspecified type Qualified Code(s): F03.90 - Unspecified dementia, unspecified severity, without behavioral disturbance, psychotic disturbance, mood disturbance, and anxiety Code(s): F03.90 - Unspecified dementia, unspecified severity, without behavioral disturbance, psychotic disturbance, mood disturbance, and anxiety Status: Acute DS: Summary Hospital Course Reason for hospitalization: admitted for right hip fracture Hospital Course: 87-year-old female with past medical history of dementia and depression presented with right hip pain after a fall.? She lives in [place].She was standing up to fix a piece of clothing when she turned around and fell.? She states she thought her walker was right behind her but it had rolled away.? She fell onto her right side and was unable to get up off the ground.? Found to have fracture of right femur. Patient was seen in consultation by Dr. Cheung with Orthopedics. He took patient to the operating room on 12/22. Patient progressing well with therapy will need SNF care. Patient is now s/p PERCUTANEOUS PINNING RIGHT FEMORAL NECK FRACTURE POD#2 Status at Discharge Cognitive/behavioral status at discharge: awake, alert, confused per baseline dementia Functional status at discharge: uses cane/walker Overall status at discharge: patient is progressing back to baseline Time Spent with Patient Time attestation: Total time spent providing and/or coordinating discharge services: 35 minutes Time spent: Greater than 30 minutes Specific discharge activities: reprint [place] prescription [facility] Exam Narrative: General: alert, confused per baseline dementia Psych: appropriate mood, appropriate affect Eyes: PERRLA EOMI Neck: Trachea midline, no JVD Skin: Intact, dry, warm Lungs: clear to auscultation in all lung martinez Cardiac: Normal S1,S2, no murmurs ABD: soft nontender nondistended with normal bowel sounds Ext: no new lesions, Dressing clean dry and intact on right hip Vasc: Pulses intact, motor and sensation intact distally DS: Data Data Completed and Pending Completed studies during hospitalization: Pelvis and hip x-ray, chest x-ray, intraoperative x-ray Pending studies at discharge: none Labs on day of discharge: Labs from last 24 hours 12/25/22 04:53 WBC 9.1 RBC 3.97 L Hgb 11.8 L Hct 38.5 MCV 97.0 MCH 29.7 MCHC 30.6 L RDW 13.3 Plt Count 246 MPV 11.7 H Immature Gran % (Auto) 0.8 H Neut % (Auto) 59.8 Lymph % (Auto) 23.0 [place] % (Auto) 12.2 H Eos % (Auto) 3.3 Baso % (Auto) 0.9 Lymph # (Auto) 2.09 [place] # (Auto) 1.1 H Eos # (Auto) 0.3 Baso # (Auto) 0.1 Abs Immat Gran (auto) 0.07 H Absolute Neuts (auto) 5.4 Absolute Nucleated RBC 0.0 Nucleated RBC % 0.0
[2022-12-25 12:14] VITALS: BP 135/59; PULSE 74; RESP 17; TEMP 36.4; O2SAT 100
[2022-12-25 13:09] LABS: SARS-CoV-2 RNA PCR Negative (Negative)
== END 2022-12-25 18:00 | DRG 482 ==
LOC: ANHED 12-21 00:59 → ANH2MED 12-21 01:49
PROVIDERS: Internal Medicine; Orthopaedic Surgery; Admitting Provider Internal Medicine; Emergency Provider Physician Assistant; Visit Provider Nurse Practitioner
PROC: 0QS634Z Reposition Right Upper Femur with Internal Fixation Device, Percutaneous Approach (ICD-10-PCS; principal; 2022-12-22 14:00)
DX: S72.001A Fracture of unspecified part of neck of right femur, initial encounter for closed fracture (principal); I11.0 Hypertensive heart disease with heart failure; I50.9 Heart failure, unspecified; I25.10 Atherosclerotic heart disease of native coronary artery without angina pectoris; E78.5 Hyperlipidemia, unspecified; K21.9 Gastro-esophageal reflux disease without esophagitis; H35.30 Unspecified macular degeneration; F32.A Depression, unspecified; F03.90 Unspecified dementia, unspecified severity, without behavioral disturbance, psychotic disturbance, mood disturbance, and anxiety; W19.XXXA Unspecified fall, initial encounter; Z20.822 Contact with and (suspected) exposure to COVID-19; Z95.1 Presence of aortocoronary bypass graft; Z95.0 Presence of cardiac pacemaker; Z96.653 Presence of artificial knee joint, bilateral; Z79.82 Long term (current) use of aspirin
CPT/HCPCS: 36415; 71045; 73502; 80048; 80053; 83735; 85025; 85610; 85730; 86850; 86900; 86901; 87635; 93005; 96375; 97110; 97161; 97166; 97530; 97535; 99199; 99285; A9270; G0378; J0690; J1644; J2270; J7120